=== PATIENT | male | born 1990 | race Caucasian/White ===

== ENCOUNTER 2024-02-15 12:03 | Emergency (ER) | payer OTHER, SELFPAY ==
[2024-02-15 12:06] VITALS: BP 147/83; PULSE 47; RESP 16; TEMP 36.1; O2SAT 100; BMI 28.6
--- NOTE | 2024-02-15 12:14 | ED_ITS ---
HPI - Abdominal Pain General Time Seen by Provider: 12:15 Date Seen: 02/15/24 Chief Complaint: Abdominal Pain Stated Complaint: Stomach pains Time Seen by Provider: 02/15/24 12:05 Source: patient and RN notes reviewed Mode of arrival: ambulatory Limitations: no limitations History of Present Illness HPI narrative: This 33-year-old male is coming in with severe epigastric abdominal pain that radiates around under his ribs on both sides. He has increased pain in the epigastric area with deep breathing but is not complaining of any chest problems with breathing. There have been no fevers. Symptoms started abruptly around 8:30 a.m. today. He felt nauseated at 1 point but did not vomit, no nausea now. It is constant but he will have sharp stabbing pains that are worse. He states he had a normal bowel movement this morning. Denies any blood in his bowels, no recent diarrhea. There is no fevers or chills with this. He has had no history of any abdominal surgeries, no pain like this before. He will occasionally get some heartburn but that is very infrequent, not now. He had 2 beers last night but it notes he really does not drink much alcohol. They have a 3-week-old at home, have really not been doing much. No urinary symptoms. Patient does run, works out about 3 to 4 times a week. Did ask him about this as his resting heart rate is in the 40s, he is aware of this. MD elicited complaint: abdominal pain Related Data Previous Rx's ?Medication ?Instructions ?Recorded omeprazole 40 mg capsule,delayed 40 mg PO DAILY #14 caps 02/15/24 release Allergies Allergy/AdvReac Type Severity Reaction Status Date / Time No Known Drug Allergies Allergy Verified 02/15/24 12:11 Review of Systems Status of ROS Reports: 6 or more systems reviewed and unremarkable except as noted in History and below [facility] Social History Smoking Status: Unknown if ever smoked Non-prescribed substance use: denies use Exam Const: Vital Signs, click to edit/add: Vital Signs - 24 hr 02/15/24 12:06 02/15/24 14:00 Temperature 96.9 F L Pulse Rate 50 L Pulse Rate [Pulse Oximeter] 47 L Respiratory Rate 16 16 Blood Pressure 131/67 Blood Pressure [Ri ght Upper Arm] 147/83 H Pulse Oximetry 100 98 This 33-year-old male is alert, interactive, looks to be uncomfortable, is sitting up on the edge of the bed leaning forward. Pupils equal round reactive, sclera clear, symmetrical facial function, able to speak in complete sentences. Lungs are clear, good air entry, no wheezing or crackles. No palpable chest wall pain. CV regular but slow, normal S1-S2, no S3-S4, no murmur. Abdomen is soft, nondistended, normal bowel sounds, definite epigastric pain with some left upper quadrant pain. He has guarding on palpation but no rebound. I do not feel any organomegaly or masses. Skin without any rash or jaundice. Patient did ambulate in of his own accord. Documenting provider has reviewed patient's vital signs: yes Course Course ED Course: Reviewed with patient that we will start with some IV Toradol, see if this helps. He is not nauseated right now but will give Zofran if need be. There is a shortage of IV fluids and thus no fluids will be given at this point. We will get full complement of labs including amylase and lipase. Patient will go to CT and have CT of his abdomen pelvis with IV contrast to further elucidate any internal abdominal pathology. Reviewed with him that pancreas, atypical presentation of gallbladder, gastric and duodenal issues are all possible. As a 33-year-old healthy male, unlikely to be anything vascular with in his abdomen. Reevaluation(s) Time of Reevaluation #1: 14:55 Reevaluation #1: Reviewed with patient that his CT showing no definable pathology for his symptoms. He is feeling better, has been drinking water here. We discussed possibility such things like ulcer disease, gastritis. We reviewed that you certainly cannot see into the stomach or bowel on CT imaging. Did review his incidental findings of the horseshoe kidney, hydrocele. Also reviewed that his platelet count was mildly low at 124,000 hundred and twenty four thousand, recommend recheck of this within the next month or so, can be further evaluated outpatient if he is remaining low. Vital Signs Vital signs: Initial Vital Signs Temperature 96.9 F L 02/15/24 12:06 Temperature Source Temporal Artery Scan 02/15/24 12:06 Pulse Rate 47 L 02/15/24 12:06 Respiratory Rate 16 02/15/24 12:06 Blood Pressure 147/83 H 02/15/24 12:06 Blood Pressure Mean 104 02/15/24 12:06 Pulse Oximetry 100 02/15/24 12:06 Vital Signs Temperature 96.9 F L 02/15/24 12:06 Pulse Rate 47 L 02/15/24 12:06 Respiratory Rate 16 02/15/24 12:06 Blood Pressure 147/83 H 02/15/24 12:06 Pulse Oximetry 100 02/15/24 12:06 Temperature 96.9 F L 02/15/24 12:06 Pulse Rate 50 L 02/15/24 14:00 Respiratory Rate 16 02/15/24 14:00 Blood Pressure 131/67 02/15/24 14:00 Pulse Oximetry 98 02/15/24 14:00 Medications Administered Medications: Discontinued Medications Generic Name Dose Route Start Last Admin Trade Name Freq PRN Reason Stop Dose Admin Ketorolac Tromethamine 15 mg 02/15/24 12:21 02/15/24 12:33 Ketorolac 15 Mg/Ml Inj IVP 02/15/24 12:22 15 mg ONCE ONE Administration MDM - Abdominal Pain Lab Data Attestation: I reviewed the patient's lab results. Labs: Lab Results 02/15/24 Range/Units 12:32 WBC 5.31 (4.50-11.00) K/uL RBC 4.03 L (4.30-5.90) m/uL Hgb 13.5 (13.5-17.5) gm/dL Hct 38.3 (37.0-53.0) % MCV 95 (80-100) fL MCH 34 (26-34) pg MCHC 35 (32-36) gm/dL RDW Coeff of Adina 11.5 (11.5-15.5) % Plt Count 124 L (140-440) K/uL Neut % (Auto) 82.0 H (42.0-72.0) % Lymph % (Auto) 14.1 L (20-44) % Mcclain % (Auto) 2.8 (0.0-11.0) % Eos % (Auto) 0.9 (0.0-7.0) % Baso % (Auto) 0.2 (0.0-3.0) % Neut # (Auto) 4.40 (1.7-7.0) K/uL Lymph # (Auto) 0.70 L (0.90-2.90) K/uL Mcclain # (Auto) 0.10 (0.00-0.90) K/UL Eos # (Auto) 0.05 (0.00-0.50) K/uL Baso # (Auto) 0.01 (0.00-0.30) K/uL Abs Immat Gran (auto) 0.00 (0.00-0.30) K/uL Imm/Tot Granulo (auto) 0.0 % Sodium 135 (135-149) mmol/L Potassium 4.3 (3.6-5.1) mmol/L Chloride 102 (96-114) mmol/L Carbon Dioxide 26 (20-32) mmol/L Anion Gap 7 (7-15) mEq/L BUN 16 (5-24) mg/dL Creatinine 0.7 (0.5-1.5) mg/dL Estimated Creat Clear 187.72 Estimated GFR 126 ml/min Glucose 110 (60-115) mg/dL Lactate 1.1 (0.5-1.9) mmol/L Calcium 9.4 (8.4-10.6) mg/dL Total Bilirubin 0.6 (0.1-1.5) mg/dL Direct Bilirubin 0.0 (0.0-0.5) mg/dL AST 24 (12-35) U/L ALT 18 (4-50) U/L Alkaline Phosphatase 56 (40-150) U/L C-Reactive Protein < 0.5 L (0.5-1.0) mg/dL Total Protein 7.0 (6.0-8.3) g/dL Albumin 4.7 (3.3-5.0) g/dL Amylase 67 (18-89) U/L Lipase 54 (23-300) U/L Imaging Data CT scan - abdomen: Attestation: I have reviewed the pertinent imaging results. Radiologist's impression: Patient: STEPHAN SANFORD Facility:?[facility] Patient ID:?[id number] Site Patient ID:?[id number]. Site :?[id number] Study:?CT-Abdomen/Pelvis W/ 116CC [id number]/2024 12:44:40 PM Ordering Physician:Harvey Aiken Final Report: INDICATION: Severe epigastric pain TECHNIQUE: CT abdomen and pelvis acquired with 116 cc Isovue 370 IV contrast. COMPARISON: None. FINDINGS: Lower chest: Unremarkable. Liver: Normal in size and attenuation. No suspicious masses. Prominence of the hepatic veins throughout the liver. Gallbladder and bile ducts: Unremarkable. No stones or inflammation. No biliary dilatation. Pancreas: Unremarkable. No mass or inflammation. Spleen: Unremarkable. Normal in size. No masses. Adrenal glands: Unremarkable. No nodules. Kidneys: Incidental finding of horseshoe kidney. No suspicious masses, stones, or hydronephrosis. GI tract: The colon is largely decompressed. The small bowel is normal in caliber. No sign of mass or inflammation. The appendix is not well seen, however there is no periappendiceal stranding or fluid collection to suggest acute appendicitis. Vasculature: Abdominal aorta is normal in caliber. Mesenteric arteries are patent. Lymph nodes: No lymphadenopathy. Peritoneum/Abdominal Wall: Unremarkable. No sign of mass or infiltration. No free air or significant free fluid. Pelvis: Small right hydrocele, incompletely evaluated. Bones: Unremarkable for age. Likely physiologic anterior wedging of the T11 vertebral body. IMPRESSION: 1. No definite acute findings within the abdomen or pelvis to explain the patient`s pain. 2. Prominence of the hepatic veins throughout the liver, which is of unclear clinical significance, although could suggest hepatic congestion in the correct clinical context. 3. Small right hydrocele, incompletely evaluated. 4. Horseshoe kidney. Please note that all CT scans at this facility use dose modulation, iterative reconstruction, and/or weight-based dosing when appropriate to reduce radiation dose to as low as reasonably achievable. Dictated by Charissa Mccullough MD @ 02/15/2024 2:43:38 PM (Electronic Signature) Discharge Plan Discharge Clinical Impression: Epigastric abdominal pain, Horseshoe kidney, Hydrocele, Low platelet count Patient Disposition: Home, Self-Care Condition: Stable Instructions: Epigastric Pain (ED) Additional Instructions: Recommend follow-up in clinic, need to have your platelet count rechecked certainly within the next month. Please bring CT report to your primary care provider to review the findings of the horseshoe kidney and the hydrocele. Your epigastric abdominal pain may be from possible entities such as ulcer disease or gastritis. We will initiate omeprazole. If you developed worsening abdominal pain, if it becomes associated with vomiting or fever, have further concerns, please seek re-evaluation. Activity Level: Activity as Tolerated Discharge Diet: Regular Prescriptions: New omeprazole 40 mg capsule,delayed release(DR/EC) 40 mg PO DAILY Qty: 14 0RF Follow Up/Referrals: Provider,Not a Local [Primary Care Provider] - Stand Alone Forms: [employer] Info Instructions
--- NOTE | 2024-02-15 12:23 | CRLHL7_ITS ---
For Patients: As a result of the Century Cures Act, medical imaging exams and procedure reports are released immediately into your electronic medical record. You may view this report before your referring provider. If you have questions, please contact your health care provider. INDICATION: Severe epigastric pain TECHNIQUE: CT abdomen and pelvis acquired with 116 cc Isovue 370 IV contrast. COMPARISON: None. FINDINGS: Lower chest: Unremarkable. Liver: Normal in size and attenuation. No suspicious masses. Prominence of the hepatic veins throughout the liver. Gallbladder and bile ducts: Unremarkable. No stones or inflammation. No biliary dilatation. Pancreas: Unremarkable. No mass or inflammation. Spleen: Unremarkable. Normal in size. No masses. Adrenal glands: Unremarkable. No nodules. Kidneys: Incidental finding of horseshoe kidney. No suspicious masses, stones, or hydronephrosis. GI tract: The colon is largely decompressed. The small bowel is normal in caliber. No sign of mass or inflammation. The appendix is not well seen, however there is no periappendiceal stranding or fluid collection to suggest acute appendicitis. Vasculature: Abdominal aorta is normal in caliber. Mesenteric arteries are patent. Lymph nodes: No lymphadenopathy. Peritoneum/Abdominal Wall: Unremarkable. No sign of mass or infiltration. No free air or significant free fluid. Pelvis: Small right hydrocele, incompletely evaluated. Bones: Unremarkable for age. Likely physiologic anterior wedging of the T11 vertebral body. IMPRESSION: 1. No definite acute findings within the abdomen or pelvis to explain the patient`s pain. 2. Prominence of the hepatic veins throughout the liver, which is of unclear clinical significance, although could suggest hepatic congestion in the correct clinical context. 3. Small right hydrocele, incompletely evaluated. 4. Horseshoe kidney. Please note that all CT scans at this facility use dose modulation, iterative reconstruction, and/or weight-based dosing when appropriate to reduce radiation dose to as low as reasonably achievable. Dictated by Charissa Mccullough MD @ 02/15/2024 2:43:38 PM (Electronically Signed)
[2024-02-15] MEDS: KETOROLAC 15 MG/ML inj IVP (12:33)
[2024-02-15 12:39] LABS: Lactate* 1.1 mmol/L (0.5-1.9)
[2024-02-15 12:44] LABS: Basophils Absolute Auto 0.01 K/uL (0.00-0.30); Basophils Percent Auto 0.2 % (0.0-3.0); Eosinophils Absolute Auto 0.05 K/uL (0.00-0.50); Eosinophils Percent Auto 0.9 % (0.0-7.0); Hematocrit 38.3 % (37.0-53.0); Hemoglobin* 13.5 gm/dL (13.5-17.5); Lymphocytes Percent Auto 14.1 % (20-44); Mean Corpuscular HGB Conc 35 gm/dL (32-36); Mean Corpuscular Hemoglobin 34 pg (26-34); Mean Corpuscular Volume 95 fL (80-100); Monocytes Percent Auto 2.8 % (0.0-11.0); Platelet Count* 124 K/uL (140-440); RDW Coefficient of Variation % 11.5 % (11.5-15.5); Red Blood Count 4.03 m/uL (4.30-5.90); White Blood Count* 5.31 K/uL (4.50-11.00)
[2024-02-15 12:48] LABS: Slide Review Reflex No
[2024-02-15 13:01] LABS: Albumin* 4.7 g/dL (3.3-5.0); Chloride* 102 mmol/L (96-114)
[2024-02-15 13:02] LABS: Potassium* 4.3 mmol/L (3.6-5.1); Sodium* 135 mmol/L (135-149)
[2024-02-15 13:04] LABS: Amylase* 67 U/L (18-89); Creatinine* 0.7 mg/dL (0.5-1.5); Est. Creatinine Clearance* 187.72; Estimated Glomerular Filt Rate 126 ml/min
[2024-02-15 13:05] LABS: Alanine Aminotransferase* 18 U/L (4-50); Alkaline Phosphatase* 56 U/L (40-150); Anion Gap 7 mEq/L (7-15); Aspartate Amino Transferase* 24 U/L (12-35); Bilirubin Total* 0.6 mg/dL (0.1-1.5); Blood Urea Nitrogen* 16 mg/dL (5-24); Calcium* 9.4 mg/dL (8.4-10.6); Carbon Dioxide* 26 mmol/L (20-32); Glucose* 110 mg/dL (60-115); Lipase* 54 U/L (23-300)
[2024-02-15 13:15] LABS: C Reactive Protein* < 0.5 mg/dL (0.5-1.0)
[2024-02-15 14:00] VITALS: BP 131/67; PULSE 50; RESP 16; O2SAT 98
== END 2024-02-15 15:07 | disposition home or self-care (01) ==
PROVIDERS: Emergency Provider Family Medicine
DX: R10.13 Epigastric pain (principal); Q63.1 Lobulated, fused and horseshoe kidney; N43.3 Hydrocele, unspecified; D69.6 Thrombocytopenia, unspecified
CPT/HCPCS: 36415; 74177; 80053; 82150; 82248; 83605; 83690; 85025; 86140; 96374; 99284; 99285; J1885; Q9967